=== PATIENT | male | born 1955 | race Caucasian/White ===

== ENCOUNTER 2024-06-10 07:06 | Emergency (ER) | payer MEDICARE, OTHER ==
[~2024-06-10] VITALS: Ht 177.8 cm; Wt 99.1 kg
[2024-06-10 07:35] VITALS: BP 151/91; PULSE 68; RESP 18; TEMP 97.7; O2SAT 95
[2024-06-10] MEDS ORDERED: NAPR-746 PO (08:39)
== END 2024-06-10 08:52 | disposition home or self-care (01) ==
LOC: ER 07:06
DX: S22.42XA Multiple fractures of ribs, left side, initial encounter for closed fracture (principal); S42.102A Fracture of unspecified part of scapula, left shoulder, initial encounter for closed fracture; Z88.5 Allergy status to narcotic agent; Z88.0 Allergy status to penicillin; V87.8XXA Person injured in other specified noncollision transport accidents involving motor vehicle (traffic), initial encounter; Y93.55 Activity, bike riding; Y92.89 Other specified places as the place of occurrence of the external cause; Y99.8 Other external cause status
CPT/HCPCS: 73200